=== PATIENT | female | born 1940 | race Caucasian/White ===

== ENCOUNTER 2018-04-17 15:26 | Emergency (ER) | payer OTHER ==
[~2018-04-17] VITALS: Ht 167.6 cm; Wt 61.2 kg
[2018-04-17 15:50] VITALS: BP 127/74
--- NOTE | 2018-04-17 16:56 | RADIOLOGY REPORT ---
EXAMINATION: XR TIBIA AND FIBULA, LEFT CLINICAL INFORMATION: Trauma to the leg. COMPARISON: None TECHNIQUE: AP and lateral views of the left tibia and fibula were obtained. FINDINGS: There is no fracture. The tibia and the fibula are normal. No soft tissue abnormality. IMPRESSION: Normal left tibia and fibula.
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
== END 2018-04-17 17:47 ==
LOC: ERH 15:26
DX: S80.812A Abrasion, left lower leg, initial encounter (principal); W22.03XA Walked into furniture, initial encounter; Y92.9 Unspecified place or not applicable; Y93.9 Activity, unspecified
CPT/HCPCS: 73590-LT; 90714; J2001